=== PATIENT | male | born 1960 | race Caucasian/White ===

== ENCOUNTER 2017-11-01 05:45 | Inpatient (IN) | payer OTHER ==
[2017-10-28 14:46] LABS: CLARITY,URINE CLEAR (Clear); COLOR,URINE YELLOW (Yellow); GLUCOSE, URINE NEGATIVE (Neg); KETONES,URINE NEGATIVE (Neg); LEUKOCYTE ESTERASE ,URINE NEGATIVE (Neg); NITRITES, URINE NEGATIVE (Neg); OCCULT BLOOD,URINE NEGATIVE (Neg); PH,URINE 6.5 (4.8-8.0); PROTEIN,URINE NEGATIVE (Neg); UROBILINOGEN,URINE 0.2 E.U/dL (0.2-1.0)
[2017-10-28 14:47] LABS: UA COLLECTION TYPE CLN CATCH MIDSTREAM
[2017-10-28 14:49] LABS: BASOPHILS % (AUTO) 0.3 % (0-1); EOSINOPHILS # (AUTO) 0.2 X10'3 (0-0.9); EOSINOPHILS % (AUTO) 2.1 % (0-6); LYMPHOCYTES # (AUTO) 1.8 X10'3 (1.1-4.8); LYMPHOCYTES % (AUTO) 23.3 % (21-51); MEAN CORPUSCULAR HGB CONC 34.6 % (33.0-36.5); MEAN CORPUSCULAR VOLUME 98.1 FL (78-98); MEAN PLATELET VOLUME 7.6 FL (7.4-10.4); MONOCYTES # (AUTO) 0.5 X10'3 (0-0.9); MONOCYTES % (AUTO) 6.1 % (2-12); NEUTROPHILS # (AUTO) 5.3 X10'3 (1.8-7.7); NEUTROPHILS % (AUTO) 68.2 % (42-75); PRE OP HEMATOCRIT 46.7 % (42.0-52.0); PRE OP HEMOGLOBIN 16.2 g/dL (14.0-17.9); PRE OP PLATELET COUNT 253 X10'3 (140-440); RED BLOOD COUNT 4.76 X10'6 (4.70-6.10); RED CELL DISTRIBUTION WIDTH 12.3 % (11.5-14.5)
[2017-10-28 14:53] LABS: ALBUMIN/GLOBULIN RATIO 1.3 (1.1-1.5); ALKALINE PHOSPHATASE 64 IU/L (46-116); BLOOD UREA NITROGEN 23 MG/DL (7-18); BUN/CREATININE RATIO 24.5 (5.4-32.0); CALCIUM 8.8 MG/DL (8.5-10.1); CHLORIDE 103 MMOL/L (99-107); CREATININE 0.94 MG/DL (0.60-1.10); PRE OP ALT 32 U/L (30-65); PRE OP ANION GAP 6 (8-16); PRE OP AST 18 U/L (10-37); PRE OP BILIRUB, TOTAL 0.4 MG/DL (0.0-1.0); PRE OP GLUCOSE 95 MG/DL (70-104); PRE OP POTASSIUM 4.5 MMOL/L (3.4-5.1); PRE OP SODIUM 139 MMOL/L (135-145); TOTAL PROTEIN 7.1 G/DL (6.4-8.2); eGFR 83 ML/MIN
[2017-11-01] VITALS (18 sets, daily range): BP systolic 105–156; BP diastolic 44–92
[~2017-11-01] VITALS: Ht 185.4 cm; Wt 91.6 kg
[~2017-11-01 05:45] MED LIST: Cefazolin 2GM/50ML dext iso,osmotic IVPB IV ONE; NAPR220T67 PO; famotidine 20mg tablet PO ONE; ringers solution, lacted 1,000 ML IV SCH
[2017-11-01] MEDS ORDERED: LIDOcaine 1% (10mg/ml) 2ml vial ONE (06:56)
[2017-11-01] MEDS ORDERED: BUPIVAcaine/PF 2.5mg/ml (0.25%) 10ml vial ONE (07:43)
[2017-11-01] MEDS ORDERED: ceFAZolin 1000mg inj ONE (07:59)
[2017-11-01] MEDS ORDERED: ketorolac trometh. 30mg/ml inj. ONE (08:25)
[2017-11-01] MEDS ORDERED: sevoflurane 250ml liquid IH ONE (08:25)
[2017-11-01] MEDS ORDERED: fentaNYL/PF 50MCG/1 ML 2ML syringe ONE (08:31)
[2017-11-01] MEDS ORDERED: midazolam 2 mg/2 ml injection ONE (08:31)
[2017-11-01] MEDS ORDERED: propofol inj 20 ML IV ONE (08:34)
[2017-11-01] MEDS ORDERED: LIDOcaine 1%/PF 5ML 10 MG/ML VIAL ONE (08:34)
[2017-11-01] MEDS ORDERED: dexamethasone sod phosphate 4mg/ml inj. ONE (08:40)
[2017-11-01] MEDS ORDERED: LIDOcaine 2% 5ml jelly ONE (08:41)
[2017-11-01] MEDS ORDERED: rocuronium 10mg/ml inj IV ONE (08:41)
[2017-11-01] MEDS ORDERED: ondansetron/PF 4mg/2ml inj ONE (08:48)
[2017-11-01] MEDS ORDERED: ringers solution, lacted 1,000 ML IV SCH (09:28)
[2017-11-01] MEDS ORDERED: morphine 4 MG/ML inj SYRINge IV PRN ×2 (09:30)
[2017-11-01] MEDS ORDERED: ondansetron/PF 4mg/2ml inj IV PRN ×2 (09:30→11:35)
[2017-11-01] MEDS ORDERED: proCHLORperazine 10 MG/2 ml inj IV PRN (09:30)
[2017-11-01] MEDS ORDERED: meperidine/PF 25mg/ml syringe IV PRN ×3 (09:30)
[2017-11-01] MEDS ORDERED: ROPIVAcaine 0.5% (5mg/ml) 30ml vial ONE (10:01)
[2017-11-01] MEDS ORDERED: neostigmine methylsulfate 1 MG/ML 10ml vial ONE (10:29)
[2017-11-01] MEDS ORDERED: glycopyrrolate 0.2mg/ml inj ONE (10:29)
[2017-11-01] MEDS ORDERED: acetaminophen 1,000mg/100ml IV 100 ML IV ONE (10:50)
[2017-11-01] MEDS ORDERED: naloxone 0.4 mg/ml inj IV PRN (11:35)
[2017-11-01] MEDS ORDERED: HYDROcodone/acetaminophen 5mg/325mg tablet PO PRN (11:35)
[2017-11-01] MEDS ORDERED: CADD PCA waste documentation MC PRN (11:35)
[2017-11-01] MEDS: HYDROmorphone/NS 1 mg/ml CADD 50 ML IV SCH ×7 (11:55→23:00)
[2017-11-01] MEDS: ceFAZolin 1GM/D5W- ADD-VANTAGE 50 ML IV SCH ×2 (15:37→23:31)
[2017-11-01] MEDS: potassium CL 20mEq in D5-1/2NS 1,000 ML IV SCH ×2 (17:37→21:35)
[2017-11-01] MEDS: enoxaparin 30mg/0.3ml syringe SQ SCH (20:41)
[2017-11-02] VITALS: BP 128/79
[2017-11-02] MEDS: HYDROmorphone/NS 1 mg/ml CADD 50 ML IV SCH ×12 (01:00→23:00)
[2017-11-02] MEDS: potassium CL 20mEq in D5-1/2NS 1,000 ML IV SCH ×2 (02:53→14:04)
[2017-11-02 04:00] VITALS: BP 108/73
[2017-11-02 07:00] VITALS: BP 91/62
[2017-11-02] MEDS: enoxaparin 30mg/0.3ml syringe SQ SCH ×2 (08:00→20:00)
[2017-11-02] MEDS: ceFAZolin 1GM/D5W- ADD-VANTAGE 50 ML IV SCH (08:58)
[2017-11-02] MEDS: HYDROcodone/acetaminophen 10/325mg tab PO PRN (14:01)
[2017-11-02 19:00] VITALS: BP 102/70
[2017-11-03] VITALS: BP 127/87
[2017-11-03] MEDS: potassium CL 20mEq in D5-1/2NS 1,000 ML IV SCH ×3 (00:48→10:39)
[2017-11-03] MEDS: HYDROmorphone/NS 1 mg/ml CADD 50 ML IV SCH ×5 (01:00→09:00)
[2017-11-03 06:44] VITALS: BP 147/83
[2017-11-03] MEDS: enoxaparin 30mg/0.3ml syringe SQ SCH ×2 (07:13→20:00)
[2017-11-03] MEDS: HYDROcodone/acetaminophen 10/325mg tab PO PRN ×3 (10:46→20:06)
[2017-11-03 11:18] VITALS: BP 131/84
[2017-11-03 13:40] VITALS: BP 131/79
[2017-11-03 18:00] VITALS: BP 128/81
[2017-11-04] VITALS: BP 133/78
[2017-11-04] MEDS: HYDROcodone/acetaminophen 10/325mg tab PO PRN ×3 (00:03→12:17)
[2017-11-04 07:01] VITALS: BP 121/70
[2017-11-04] MEDS: enoxaparin 30mg/0.3ml syringe SQ SCH (08:00)
[2017-11-04 11:00] VITALS: BP 134/73
[2017-11-04] MEDS ORDERED: HYDR-565 PO (11:00)
== END 2017-11-04 12:56 | disposition home or self-care (01) | DRG 337 ==
LOC: PAS 05:45 → SUR 3N 11:35 → OBSVTOIN 11-03 18:30
PROVIDERS: ADMIT Surgery; ATTEND Surgery
PROC: 0DNW0ZZ Release Peritoneum, Open Approach (ICD-10-PCS; 2017-11-01)
PROC: 3E0T3BZ Introduction of Anesthetic Agent into Peripheral Nerves and Plexi, Percutaneous Approach (ICD-10-PCS; 2017-11-01)
PROC: 0WUF0JZ Supplement Abdominal Wall with Synthetic Substitute, Open Approach (ICD-10-PCS; principal; 2017-11-01 08:25)
DX: K43.2 Incisional hernia without obstruction or gangrene (principal); K66.0 Peritoneal adhesions (postprocedural) (postinfection)
CPT/HCPCS: 36415; 80053; 81003; 85025; 87070; 93005; A6253; A6449; A7000; C1713; C1781; G0378; J0131; J0690; J1100; J1170; J1650; J1885; J2001; J2175; J2250; J2405; J2704; J2710; J2795; J3010; J3490; J7120